=== PATIENT | female | born 1945 | race Caucasian/White ===

== ENCOUNTER 2020-04-16 12:36 | Day surgery (SDC) | payer MEDICARE, OTHER ==
[~2020-04-16] VITALS: Ht 165.1 cm; Wt 100.7 kg
[2020-04-16] VITALS (10 sets, daily range): BP systolic 125–158; BP diastolic 52–81; PULSE 67–82; TEMP 98
[~2020-04-16 12:36] MED LIST: ARIMIDEX1 MG PO; EFFEXOR 3737.5 MG/TA PO; GLUCOPHAGE XR500 M1 PO; LIPITOR 80MG80 MG PO; METFORMIN HCL500 M1 PO; TOPIRAMATE; VITAMIN D; VITAMIN E200 I1 PO; ZETIA10 MG PO
[2020-04-16 13:20] LABS: HEMATOCRIT 41.5 % (37.0-47.0); MEAN CELL VOLUME 95 fl (80.0-100.0); MEAN CORPUSCULAR HEMOGLOBIN 32 pg (27.0-31.0); MEAN CORPUSCULAR HGB CONC 34 g/dl (33.0-37.0); MEAN PLATELET VOLUME 9.5 fl (7.4-10.4); PLATELET COUNT 232 K/mm3 (130-400); RED BLOOD COUNT 4.39 M/mm3 (4.10-5.30); REDCELL DISTRIBUTION WIDTH-CV 12.3 % (11.5-14.5)
[2020-04-16 13:34] LABS: CALCIUM 9.5 mg/dL (8.4-10.2); CREATININE, serum 0.77 (0.52-1.25); POTASSIUM 4.5 mmol/L (3.4-5.0)
[2020-04-16] MEDS ORDERED: LIPITOR 80MG80 MG PO (13:34)
[2020-04-16] MEDS ORDERED: NEXIUM 40MG40 MG PO (13:34)
[2020-04-16] MEDS ORDERED: ZETIA 10MG TAB10 MG PO (13:36)
[2020-04-16] MEDS ORDERED: AMARYL1 MG PO (13:37)
[2020-04-16] MEDS ORDERED: TOPROL XL 50MG50 MG PO (13:37)
[2020-04-16] MEDS ORDERED: EFFEXOR XR37.5 MG/CA PO (13:38)
[2020-04-16] MEDS ORDERED: MASON NATURAL2000 IU PO (13:44)
[2020-04-16] MEDS ORDERED: PHARMASSURE ZIN50 MG PO (13:45)
[2020-04-16] MEDS ORDERED: AMBIEN 5MG TABLE5 MG PO (13:45)
[2020-04-16] MEDS ORDERED: ASPIRIN 81M81 MG/TA2 PO (13:46)
[2020-04-16 13:53] LABS: PROTHROMBIN TIME 11.5 SECONDS (9.7-12.8)
[2020-04-16 13:55] LABS: PARTIAL THROMBOPLASTIN TIME 32.5 SECONDS (26.0-37.0)
--- NOTE | 2020-04-16 14:57 | NUR ---
SEE MERGE DOCUMENTATION FOR MEDICATION ADMINISTRATION AND INTRA/POST PROCEDURE SEDATION ASSESSMENTS. RIGHT HAND BARBEAU TEST POSITIVE.
--- NOTE | 2020-04-16 15:54 | NUR ---
Report from Samuel BERNARD. Transferred from [employer] by bed. Right Tband with 13 cc air CD&I, good pulses and cap refill < 3 secs noted. Right groin site CD&I and soft to palpation. VSS.
--- NOTE | 2020-04-16 18:38 | NUR ---
Right Tband released of 15 cc air and dressing applied. INT discontinued intact.
--- NOTE | 2020-04-16 18:53 | NUR ---
Discharge instructions given. Transferred to private car by tereso
== END 2020-04-16 18:54 | disposition home or self-care (01) ==
LOC: COL.CAR 12:36
PROVIDERS: Internal Medicine Cardiovascular Disease
DX: I25.10 Atherosclerotic heart disease of native coronary artery without angina pectoris (principal); I27.20 Pulmonary hypertension, unspecified; Q21.1 Atrial septal defect; E78.5 Hyperlipidemia, unspecified; I10 Essential (primary) hypertension; I08.1 Rheumatic disorders of both mitral and tricuspid valves; C50.919 Malignant neoplasm of unspecified site of unspecified female breast; F41.9 Anxiety disorder, unspecified; Z79.899 Other long term (current) drug therapy; Z79.82 Long term (current) use of aspirin; Z79.84 Long term (current) use of oral hypoglycemic drugs; Z88.1 Allergy status to other antibiotic agents; Z88.2 Allergy status to sulfonamides; Z79.811 Long term (current) use of aromatase inhibitors; Z86.16 Personal history of COVID-19
CPT/HCPCS: J1644; J2704; J3010; Q9967